=== PATIENT | male | born 1955 | race Caucasian/White ===

== ENCOUNTER 2022-04-28 12:19 | Inpatient (IN) | payer OTHER, SELFPAY ==
[2022-04-28] MEDS ORDERED: Boostrix 0.5 ML (Tdap) VIAL (>/=7 yrs of age) ONE (13:49)
[2022-04-28] MEDS ORDERED: Ondansetron PF 4 MG/2 ML Vial ONE ×2 (13:49→18:20)
[2022-04-28] MEDS ORDERED: CEFAZOLIN 2 GM VIAL ONE ×2 (13:49→18:02)
[2022-04-28] MEDS ORDERED: Morphine 4 MG/ML VIAL ONE (13:49)
[2022-04-28 13:59] LABS: #Basophils 0.1 thou/uL (0.0-0.2); #Eosinphils 0.1 thou/uL (0.0-0.7); #Lymphocytes 1.8 thou/uL (1.20-3.40); #Monocytes 0.7 thou/uL (0.11-0.59); #Neutrophils 13.2 thou/uL (1.40-6.50); %Basophils 0.4 % (0.0-1.0); %Eosinophils 0.6 % (0.0-10.0); %Lymphocytes 11.4 % (21.0-51.0); %Monocytes 4.6 % (0.0-10.0); Hemoglobin 15.1 g/dL (14.0-18.0); Mean Corpuscular HGB CONC 33.7 g/dL (32.0-36.0); Mean Corpuscular Hemoglobin 33.2 pg (27.0-31.0); Mean Corpuscular Volume 98.5 fl (78.0-98.0); Mean Platelet Volume 7.7 fL (7.4-10.4); Platelet Count 276 10x3/uL (130-400); RBC Distribution Width 11.3 % (11.5-14.5); Red Blood Cell (RBC) Count 4.53 mill/uL (4.70-6.10); White Blood Cell (WBC) Count 15.9 10x3/uL (4.8-10.8)
[2022-04-28] MEDS ORDERED: Morphine 2 MG/ML VIAL SLOW IVP PRN (14:05)
[2022-04-28] MEDS ORDERED: Ipratropium/Albuterol 3 ML NEB NEB PRN (14:05)
[2022-04-28] MEDS ORDERED: Ondansetron PF 4 MG/2 ML Vial IVP PRN (14:05)
[2022-04-28] MEDS ORDERED: TETANUS, DIPHTHERIA TOX,ADULT (TDVAX) 0.5 ML VIAL IM ONE ×2 (14:05→17:50)
[2022-04-28] MEDS ORDERED: hydrALAZINE 20 MG/ML VIAL SLOW IVP PRN (14:05)
[2022-04-28] MEDS ORDERED: traMADol HCl 50 MG TAB PO PRN (14:10)
[2022-04-28] MEDS ORDERED: Cyclobenzaprine 10 MG TAB PO PRN (14:10)
[2022-04-28 14:13] LABS: ALT (SGPT) 28 U/L (8-55); AST (SGOT) 22 U/L (5-34); Albumin 4.3 g/dL (3.4-4.8); Alkaline Phosphatase 77 U/L (40-110); Anion Gap 13 mmol/L (10-20); BUN (Urea Nitrogen) 16 mg/dL (8.4-25.7); Bilirubin, Total 0.4 mg/dL (0.2-1.2); Calc. Creatinine Clearance 0 mL/min (70-130); Calcium 9.7 mg/dL (7.8-10.44); Carbon Dioxide 26 mmol/L (23-31); Chloride 103 mmol/L (98-107); Estimated GFR 78; Globulin 2.8 g/dL (2.4-3.5); Glucose 108 mg/dL (80-115); Potassium 4.4 mmol/L (3.5-5.1); Protein, Total 7.1 g/dL (5.8-8.1); Sodium 138 mmol/L (136-145)
[2022-04-28 14:16] LABS: PTT 25.8 sec (22.9-36.1); Prothrombin Time 13.9 sec (12.0-14.7)
[2022-04-28 14:37] LABS: SARS-CoV-2 NAA Rapid Test Not Detected (NotDetected)
[2022-04-28] MEDS ORDERED: Ibuprofen 200 MG TAB PO PRN (15:07)
[2022-04-28] MEDS ORDERED: CEFAZOLIN 2 GM in Sodium Chloride 0.9% 100 ML IVPB SCH (15:15)
[2022-04-28] MEDS ORDERED: Morphine 2 MG/ML VIAL ONE (16:18)
[2022-04-28] MEDS: Sodium Chloride 0.9% 1,000 ML IV SCH (16:19)
[2022-04-28] MEDS ORDERED: Bacitracin Zinc Ointment 30 gm TUBE ONE (17:30)
[2022-04-28] MEDS ORDERED: Neomycin-Polymyxin 1 ML AMP ONE ×2 (17:30→19:10)
[2022-04-28] MEDS ORDERED: Bupivacaine PF 0.5% 30 ML VIAL ONE (17:30)
[2022-04-28] MEDS ORDERED: Fentanyl 250 MCG/5 ML VIAL ONE (17:36)
[2022-04-28] MEDS ORDERED: fentaNYL PF 100 MCG/2 ML SYRINGE ONE (17:37)
[2022-04-28] MEDS ORDERED: Morphine 4 MG/ML VIAL SLOW IVP PRN (17:50)
[2022-04-28] MEDS ORDERED: Fentanyl 100 MCG/2 ML VIAL SLOW IVP PRN (17:50)
[2022-04-28] MEDS ORDERED: HYDROcodone/Acetaminophen 5/325 mg Tablet PO PRN (17:50)
[2022-04-28] MEDS ORDERED: Meperidine HCl/PF 25 MG/ML VIAL IM PRN (17:58)
[2022-04-28] MEDS ORDERED: Communication Order-Pharmacy FS SCH (18:00)
[2022-04-28] MEDS ORDERED: Sodium Chloride 0.9% 100 ML ONE (18:02)
[2022-04-28] MEDS ORDERED: Lidocaine 1% PF 5 ML VIAL ONE (18:20)
[2022-04-28] MEDS ORDERED: Glycopyrrolate 0.2 MG/ML 5 ML SYRINGE ONE (18:20)
[2022-04-28] MEDS ORDERED: Dexamethasone 20 MG/5 ML VIAL ONE (18:20)
[2022-04-28] MEDS ORDERED: NEOSTIGMINE 3 MG/3 ML SYR 3 MG/3 ML SYRINGE ONE (18:20)
[2022-04-28] MEDS ORDERED: Rocuronium Bromide 10 MG/ML (10ML VIAL) ONE (18:20)
[2022-04-28] MEDS ORDERED: PROPOFOL 200 MG/20 ML VIAL ONE (18:20)
[2022-04-28] MEDS ORDERED: Aspirin 81 mg Enteric Coated Tablet PO SCH (21:00)
[2022-04-28] MEDS ORDERED: Ondansetron HCl/PF 4 MG/2 ML Vial IVP PRN (22:21)
[2022-04-28] MEDS ORDERED: HYDROmorphone 2 MG/ML VIAL SLOW IVP PRN (22:21)
[2022-04-28] MEDS ORDERED: Promethazine HCl 25 MG/ML VIAL IM PRN (22:21)
[2022-04-28] MEDS: Senokot S 8.6-50 MG TAB PO SCH (22:57)
[2022-04-28] MEDS: Acetaminophen 325 MG TAB PO SCH (22:57)
[2022-04-28] MEDS: Famotidine/PF 20 mg/2ml Vial SLOW IVP SCH (22:57)
[2022-04-28] MEDS: traMADol HCl 50 MG TAB PO SCH (22:57)
[2022-04-28] MEDS ORDERED: Fentanyl 100 MCG/2 ML VIAL ONE (23:26)
[2022-04-28] MEDS ORDERED: Ketorolac Tromethamine 30 MG/ML VIAL ONE (23:44)
[2022-04-29] MEDS: Gentamicin 80 MG/2 ML VIAL IM SCH ×4 (00:18→21:08)
[2022-04-29] MEDS: Sodium Chloride 0.9% 1,000 ML IV SCH ×4 (00:18→15:01)
[2022-04-29] MEDS: CEFAZOLIN 2 GM in Sodium Chloride 0.9% 100 ML IVPB SCH ×4 (00:18→21:09)
[2022-04-29] MEDS: traMADol HCl 50 MG TAB PO SCH ×5 (00:38→23:22)
[2022-04-29] MEDS: Acetaminophen 325 MG TAB PO SCH ×2 (00:38→06:07)
[2022-04-29 00:43] VITALS: BMI 19.5
[2022-04-29 07:51] LABS: Anion Gap 14 mmol/L (10-20); BUN (Urea Nitrogen) 14 mg/dL (8.4-25.7); Calc. Creatinine Clearance 73 mL/min (70-130); Calcium 8.1 mg/dL (7.8-10.44); Carbon Dioxide 19 mmol/L (23-31); Chloride 107 mmol/L (98-107); Estimated GFR 96; Glucose 169 mg/dL (80-115); Potassium 5.7 mmol/L (3.5-5.1); Sodium 134 mmol/L (136-145)
[2022-04-29] MEDS: Famotidine/PF 20 mg/2ml Vial SLOW IVP SCH ×2 (08:36→21:02)
[2022-04-29] MEDS: Gabapentin 300 MG CAP PO SCH ×3 (08:36→21:02)
[2022-04-29] MEDS: Polyethylene Glycol 3350 17 GM Packet PO SCH (08:36)
[2022-04-29] MEDS: Senokot S 8.6-50 MG TAB PO SCH ×2 (08:36→21:03)
[2022-04-29] MEDS ORDERED: CEFAZOLIN 2 GM in Sodium Chloride 0.9% 100 ML IVPB SCH (09:00)
[2022-04-29 09:15] LABS: #Eosinphils 0.2 thou/uL (0.0-0.7); #Lymphocytes 1.6 thou/uL (1.20-3.40); #Monocytes 1.1 thou/uL (0.11-0.59); #Neutrophils 16.2 thou/uL (1.40-6.50); %Basophils 0.1 % (0.0-1.0); %Eosinophils 0.8 % (0.0-10.0); %Lymphocytes 8.5 % (21.0-51.0); %Neutrophils 84.6 % (42.0-75.0); Hemoglobin 12.7 g/dL (14.0-18.0); Mean Corpuscular HGB CONC 32.8 g/dL (32.0-36.0); Mean Corpuscular Hemoglobin 32.6 pg (27.0-31.0); Mean Corpuscular Volume 99.5 fl (78.0-98.0); Mean Platelet Volume 8.2 fL (7.4-10.4); Platelet Count 239 10x3/uL (130-400); RBC Distribution Width 11.5 % (11.5-14.5); Red Blood Cell (RBC) Count 3.88 mill/uL (4.70-6.10); White Blood Cell (WBC) Count 19.2 10x3/uL (4.8-10.8)
[2022-04-29] MEDS ORDERED: Dextrose 50% Abboject 50 ML SYRINGE SLOW IVP PRN (11:31)
[2022-04-29] MEDS ORDERED: Dextrose 5% in Water 1,000 ML IV PRN (11:45)
[2022-04-29] MEDS ORDERED: Insulin Regular 300 UNITS/3 ML VIAL IVP SCH (11:45)
[2022-04-29] MEDS ORDERED: Sodium Chloride 0.9% 500 ML IV SCH (11:45)
[2022-04-29] MEDS: Acetaminophen 500 MG TAB PO SCH ×3 (13:24→23:22)
[2022-04-30] MEDS: Acetaminophen 500 MG TAB PO SCH (05:02)
[2022-04-30] MEDS: traMADol HCl 50 MG TAB PO SCH (05:02)
[2022-04-30] MEDS: CEFAZOLIN 2 GM in Sodium Chloride 0.9% 100 ML IVPB SCH (05:05)
[2022-04-30 05:21] VITALS: TEMP 98.2
[2022-04-30 07:36] LABS: #Eosinphils 0.1 thou/uL (0.0-0.7); #Lymphocytes 2.3 thou/uL (1.20-3.40); #Monocytes 1.4 thou/uL (0.11-0.59); #Neutrophils 9.3 thou/uL (1.40-6.50); %Basophils 0.2 % (0.0-1.0); %Eosinophils 0.5 % (0.0-10.0); %Lymphocytes 17.8 % (21.0-51.0); %Monocytes 10.4 % (0.0-10.0); %Neutrophils 71.1 % (42.0-75.0); Hemoglobin 12.4 g/dL (14.0-18.0); Mean Corpuscular HGB CONC 31.9 g/dL (32.0-36.0); Mean Corpuscular Hemoglobin 32.3 pg (27.0-31.0); Platelet Count 183 10x3/uL (130-400); RBC Distribution Width 11.7 % (11.5-14.5); Red Blood Cell (RBC) Count 3.82 mill/uL (4.70-6.10); White Blood Cell (WBC) Count 13.1 10x3/uL (4.8-10.8)
[2022-04-30] MEDS: Polyethylene Glycol 3350 17 GM Packet PO SCH (08:47)
[2022-04-30] MEDS: Gabapentin 300 MG CAP PO SCH (08:48)
[2022-04-30] MEDS: Senokot S 8.6-50 MG TAB PO SCH (08:53)
[2022-04-30] MEDS ORDERED: Famotidine 20 MG TAB PO SCH (09:00)
[2022-04-30 09:27] LABS: Anion Gap 12 mmol/L (10-20); BUN (Urea Nitrogen) 10 mg/dL (8.4-25.7); Calc. Creatinine Clearance 76 mL/min (70-130); Calcium 8.5 mg/dL (7.8-10.44); Carbon Dioxide 23 mmol/L (23-31); Chloride 108 mmol/L (98-107); Estimated GFR 97; Glucose 108 mg/dL (80-115); Magnesium 1.7 mg/dL (1.6-2.6); Phosphorus 2.2 mg/dL (2.3-4.7); Potassium 3.9 mmol/L (3.5-5.1); Sodium 139 mmol/L (136-145)
[2022-04-30 14:03] VITALS: BP 158/61
== END 2022-04-30 11:28 | disposition home or self-care (01) | DRG 512 ==
LOC: ERS 12:19 → ERHOLD 14:10 → SURG B 21:10
PROVIDERS: ADMIT Surgery; ATTEND Surgery
PROC: 0PSJ04Z Reposition Left Radius with Internal Fixation Device, Open Approach (ICD-10-PCS; principal; 2022-04-28)
PROC: 0PSH04Z Reposition Right Radius with Internal Fixation Device, Open Approach (ICD-10-PCS; 2022-04-28)
PROC: 0RSVXZZ Reposition Left Metacarpophalangeal Joint, External Approach (ICD-10-PCS; 2022-04-28)
PROC: 0PSQXZZ Reposition Left Metacarpal, External Approach (ICD-10-PCS; 2022-04-28)
PROC: 0PSLXZZ Reposition Left Ulna, External Approach (ICD-10-PCS; 2022-04-28)
DX: S52.571B Other intraarticular fracture of lower end of right radius, initial encounter for open fracture type I or II (principal); Z20.822 Contact with and (suspected) exposure to COVID-19; W11.XXXA Fall on and from ladder, initial encounter; S52.612A Displaced fracture of left ulna styloid process, initial encounter for closed fracture; S52.572A Other intraarticular fracture of lower end of left radius, initial encounter for closed fracture; S63.267A Dislocation of metacarpophalangeal joint of left little finger, initial encounter
CPT/HCPCS: 36415; 71045; 80048; 80053; 83735; 84100; 85025; 85610; 85730; 86850; 86900; 86901; 90715; 93005; C1713; C1874; J0360; J1100; J1580; J1650; J1815; J1885; J2270; J2272; J2405; J2704; J3010; J3490; J7030; J7050; S0020; S0028; U0002